=== PATIENT | female | born 1960 | race Caucasian/White ===

== ENCOUNTER 2017-10-29 09:12 | Outpatient (CLI) | payer MEDICARE, MEDICAID | END 2017-10-29 09:13 | disposition home or self-care (01) | LOC: BICMAMMO 09:12 | PROVIDERS: ATTEND Family Medicine | DX: Z12.31 Encounter for screening mammogram for malignant neoplasm of breast (principal) | CPT/HCPCS: 77063; 77067 ==

== ENCOUNTER 2018-04-20 03:41 | Emergency (ER) | payer MEDICARE, MEDICAID ==
[2018-04-20] MEDS ORDERED: HYDROcodone/Acetaminophen 5/325 mg Tablet ONE (06:56)
--- NOTE | 2018-04-20 08:25 | RAD ---
RADIOGRAPH RIGHT SHOULDER 3 VIEWS: Date: 04/20/18 Time: 0502 hours HISTORY: 58-year-old female with right shoulder traumatic pain after fall. FINDINGS: There is a fracture of the proximal humeral metaphysis, with mild displacement and mild comminution. It involves lateral aspect of humeral head. No dislocation. IMPRESSION: Acute, traumatic, comminuted, mildly displaced fracture of surgical neck (and a portion of the head) of right humerus. POS: [facility]
--- NOTE | 2018-04-20 08:31 | RAD ---
RIGHT ELBOW 2 VIEWS: Date: 04/20/18 HISTORY: Elbow pain. Fall with injury and pain. FINDINGS: No evidence of fracture seen on 2 view study. No evidence of joint effusion. IMPRESSION: No evidence of fracture identified. POS: [facility]
[2018-04-20] MEDS ORDERED: Ibuprofen 200 MG TAB ONE (08:40)
== END 2018-04-20 09:23 | disposition home or self-care (01) ==
LOC: ERS 03:41
DX: S42.211A Unspecified displaced fracture of surgical neck of right humerus, initial encounter for closed fracture (principal); K21.9 Gastro-esophageal reflux disease without esophagitis; E55.9 Vitamin D deficiency, unspecified; E03.9 Hypothyroidism, unspecified; E78.5 Hyperlipidemia, unspecified; F41.9 Anxiety disorder, unspecified; F32.9 Major depressive disorder, single episode, unspecified; F20.9 Schizophrenia, unspecified; Z79.899 Other long term (current) drug therapy; F17.210 Nicotine dependence, cigarettes, uncomplicated; W01.0XXA Fall on same level from slipping, tripping and stumbling without subsequent striking against object, initial encounter

== ENCOUNTER 2022-05-28 09:59 | Outpatient (CLI) | payer MEDICARE, MEDICAID | END 2022-05-28 10:00 | disposition home or self-care (01) | LOC: BICMAMMO 09:59 | PROVIDERS: ATTEND Family Medicine | DX: Z13.820 Encounter for screening for osteoporosis (principal); M81.0 Age-related osteoporosis without current pathological fracture | CPT/HCPCS: 77080 ==

== ENCOUNTER 2024-03-01 12:32 | Inpatient (IN) | payer MEDICARE, MEDICAID ==
[~2024-03-01 12:32] MED LIST: Iopamidol-370 76% 500 ML MDV (1 ML CHARGE) ONE
[2024-03-01] MEDS ORDERED: Magnesium 2 GM/50 ML BAG (IN WATER) ONE (13:13)
[2024-03-01] MEDS ORDERED: Albuterol 2.5 MG (0.5 mL) NEB ONE ×2 (13:30→15:12)
[2024-03-01] MEDS ORDERED: Ipratropium/Albuterol 3 ML NEB ONE ×2 (13:30→15:12)
[2024-03-01 13:52] LABS: #Basophils 0.04 10x3/uL (0.0-0.2); %Basophils 0.4 % (0.0-1.0); %Eosinophils 7.2 % (0.0-10.0); %Monocytes 5.3 % (0.0-10.0); %Neutrophils 71.9 % (42.0-75.0); Hematocrit 44.7 % (36.0-47.0); Mean Corpuscular HGB CONC 31.3 g/dL (32.0-36.0); Mean Corpuscular Hemoglobin 29.9 pg (27.0-31.0); Mean Corpuscular Volume 95.5 fL (78.0-98.0); Mean Platelet Volume 10.1 fL (7.4-10.4); Platelet Count 213 10x3/uL (130-400); Red Blood Cell (RBC) Count 4.68 mill/uL (4.20-5.40)
[2024-03-01 14:13] LABS: ALT (SGPT) 5 U/L (8-55); AST (SGOT) 13 U/L (5-34); Albumin 3.4 g/dL (3.4-4.8); Alkaline Phosphatase 74 U/L (40-110); Anion Gap 13 mmol/L (10-20); BUN (Urea Nitrogen) 9 mg/dL (9.8-20.1); Bilirubin, Total 0.6 mg/dL (0.2-1.2); Calc. Creatinine Clearance 0 mL/min (70-130); Carbon Dioxide 29 mmol/L (23-31); Chloride 102 mmol/L (98-107); Estimated GFR 91; Globulin 3.2 g/dL (2.4-3.5); Glucose 118 mg/dL (80-115); Potassium 4.6 mmol/L (3.5-5.1); Protein, Total 6.6 g/dL (5.8-8.1); Sodium 139 mmol/L (136-145)
[2024-03-01 14:25] LABS: Troponin I Less than 0.010 ng/mL (< 0.028)
[2024-03-01] MEDS ORDERED: Senokot S 8.6-50 MG TAB PO PRN (15:39)
[2024-03-01] MEDS ORDERED: HYDROcodone/Acetaminophen 5/325 mg Tablet PO PRN (15:39)
[2024-03-01] MEDS ORDERED: Ipratropium/Albuterol 3 ML NEB NEB PRN (15:55)
[2024-03-01 18:11] VITALS: BMI 30.4
[2024-03-01] MEDS: Ipratropium/Albuterol 3 ML NEB NEB SCH (18:18)
[2024-03-01] MEDS: methylPREDNISolone Sod Succ 40 MG VIAL IVP SCH (18:29)
[2024-03-01] MEDS: guaiFENesin ER 600 MG TAB PO SCH (20:53)
[2024-03-01] MEDS: Famotidine 20 MG TAB PO SCH (20:53)
[2024-03-01] MEDS: Acetaminophen 325 MG TAB PO PRN (20:54)
[2024-03-01] MEDS: Doxycycline 100 MG CAP PO SCH (20:54)
[2024-03-01] MEDS: Melatonin 3 MG TAB PO PRN (22:06)
[2024-03-02 06:00] LABS: #Basophils Less than 0.03 10x3/uL (0.0-0.2); #Eosinphils Less than 0.03 10x3/uL (0.0-0.7); %Basophils 0.1 % (0.0-1.0); %Lymphocytes 8.7 % (21.0-51.0); %Monocytes 1.6 % (0.0-10.0); %Neutrophils 89.1 % (42.0-75.0); Hematocrit 39.2 % (36.0-47.0); Hemoglobin 12.9 g/dL (12.0-16.0); Mean Corpuscular HGB CONC 32.9 g/dL (32.0-36.0); Mean Corpuscular Hemoglobin 30.3 pg (27.0-31.0); Mean Platelet Volume 10.3 fL (7.4-10.4); Platelet Count 227 10x3/uL (130-400); RBC Distribution Width 12.6 % (11.5-14.5); Red Blood Cell (RBC) Count 4.26 mill/uL (4.20-5.40)
[2024-03-02 07:02] LABS: Anion Gap 10 mmol/L (10-20); BUN (Urea Nitrogen) 10 mg/dL (9.8-20.1); Calc. Creatinine Clearance 96 mL/min (70-130); Calcium 9.7 mg/dL (7.8-10.44); Carbon Dioxide 31 mmol/L (23-31); Chloride 98 mmol/L (98-107); Estimated GFR 97; Glucose 151 mg/dL (80-115); Sodium 135 mmol/L (136-145)
[2024-03-02] MEDS: Enoxaparin 40 MG (0.4 mL) SYRINGE SC SCH (08:52)
[2024-03-02] MEDS: DULoxetine 30 MG CAP PO SCH (08:52)
[2024-03-02] MEDS: Levothyroxine Sodium 112 MCG TAB PO SCH (08:53)
[2024-03-02] MEDS: Losartan 25 MG TAB PO SCH (08:53)
[2024-03-02] MEDS: traZODone HCl 50 MG TAB PO SCH (08:53)
[2024-03-02] MEDS ORDERED: Non-Formulary Item 1 EACH (Losartan Potassium [Losartan Potassium] 100 MG Tablet) PO SCH (09:00)
[2024-03-02] MEDS: ALPRAZolam 0.5 MG TAB PO PRN (11:31)
[2024-03-02] MEDS: Mometasone 100 MCG/Formoterol 5 MCG 120 PUFF INHALER INH SCH (18:54)
[2024-03-02] MEDS ORDERED: Simvastatin 20 MG TAB PO SCH (21:00)
[2024-03-02] MEDS ORDERED: Non-Formulary Item 1 EACH (Benztropine Mesylate [Benztropine Mesylate] 2 MG Tablet) PO SCH (21:00)
[2024-03-02] MEDS: Benztropine 1 MG TAB PO SCH (21:34)
[2024-03-02] MEDS: Baclofen 10 MG TAB PO SCH (21:36)
[2024-03-02] MEDS: Atorvastatin Calcium 10 MG TAB PO SCH (21:36)
[2024-03-03 07:28] VITALS: BP 156/89; TEMP 98.6
[2024-03-03] MEDS: Ondansetron PF 4 MG/2 ML Vial IVP PRN (09:33)
== END 2024-03-03 11:32 | DRG 189 ==
LOC: ERS 12:32 → T4-B 15:29
PROVIDERS: ADMIT Family Medicine; ATTEND Internal Medicine
DX: J96.21 Acute and chronic respiratory failure with hypoxia (principal); K21.9 Gastro-esophageal reflux disease without esophagitis; E55.9 Vitamin D deficiency, unspecified; E53.9 Vitamin B deficiency, unspecified; E78.5 Hyperlipidemia, unspecified; E03.9 Hypothyroidism, unspecified; F41.9 Anxiety disorder, unspecified; F32.A Depression, unspecified; F17.210 Nicotine dependence, cigarettes, uncomplicated; F20.9 Schizophrenia, unspecified; J44.89 Other specified chronic obstructive pulmonary disease; Z79.890 Hormone replacement therapy; Z79.899 Other long term (current) drug therapy
CPT/HCPCS: 36415; 36416; 71045; 71275; 80048; 80053; 83880; 84484; 85025; 93005; 94640; 94664; 96365; J1650; J2405; J2920; J3475; J7611; J7620; Q9967

== ENCOUNTER 2024-03-06 10:55 | Inpatient (IN) | payer MEDICARE, MEDICAID ==
[2024-03-06] MEDS ORDERED: Ipratropium/Albuterol 3 ML NEB ONE (11:06)
[2024-03-06] MEDS ORDERED: Magnesium 2 GM/50 ML BAG (IN WATER) ONE (11:15)
[2024-03-06 11:40] LABS: Actual Bicarbonate (HCO3a) 31.2 mEq/L (22-28); Analyzer IN Cardio ER; Base Excess (BEa) 3.4 mEq/L (-2.0 to +3.0); Calcium, Ionized (arterial) 1.19 mmol/L (1.12-1.30); Carboxyhemoglobin (COHb) 1.1 gm% (0.0-3.0); Hematocrit-ABG 41 % (36.0-47.0); Hemoglobin (Hb) 13.9 g/dL (12.0-16.0); pH, Arterial 7.319 (7.35-7.45)
[2024-03-06 11:43] LABS: Actual Bicarbonate (HCO3v) 32.8 mEq/L (22-28); Analyzer IN Cardio ER; Base Excess 4.1 mEq/L (-2.0 to +3.0); Calcium, Ionized (venous) 1.13 mmol/L (1.16-1.32); Chloride (VBG) 96 mmol/L (98-106); Hematocrit-VBG 42 % (36.0-47.0); Hemoglobin (Hb) 14.3 g/dL (11.7-16.0); Potassium (VBG) 4.77 mmol/L (3.70-5.30); Sodium 135 mmol/L (133-146); pH (venous) 7.298 (7.32-7.43)
[2024-03-06 11:45] LABS: ALV-art Gradient 62.815 mmHg (0-20); CO2 Tension 62.1 mmHg (35.0-45.0); O2 Tension (PaO2), arterial 59.2 mmHg (> 80.0); Puncture Site Left Radial
[2024-03-06] MEDS ORDERED: Albuterol 2.5 MG (3 mL) NEB ONE (11:55)
[2024-03-06 12:01] LABS: #Basophils Less than 0.03 10x3/uL (0.0-0.2); %Basophils 0.2 % (0.0-1.0); %Lymphocytes 10.7 % (21.0-51.0); %Monocytes 5.1 % (0.0-10.0); %Neutrophils 81.3 % (42.0-75.0); Hemoglobin 14.3 g/dL (12.0-16.0); Mean Corpuscular HGB CONC 32.5 g/dL (32.0-36.0); Mean Corpuscular Hemoglobin 30.5 pg (27.0-31.0); Mean Corpuscular Volume 93.8 fL (78.0-98.0); Mean Platelet Volume 10.3 fL (7.4-10.4); Platelet Count 232 10x3/uL (130-400); RBC Distribution Width 13.1 % (11.5-14.5); Red Blood Cell (RBC) Count 4.69 mill/uL (4.20-5.40)
[2024-03-06 12:26] LABS: ALT (SGPT) 12 U/L (8-55); AST (SGOT) 10 U/L (5-34); Alkaline Phosphatase 58 U/L (40-110); Anion Gap 12 mmol/L (10-20); BUN (Urea Nitrogen) 10 mg/dL (9.8-20.1); Bilirubin, Total 0.4 mg/dL (0.2-1.2); Calc. Creatinine Clearance 0 mL/min (70-130); Calcium 8.6 mg/dL (7.8-10.44); Carbon Dioxide 30 mmol/L (23-31); Chloride 97 mmol/L (98-107); Estimated GFR 89; Globulin 2.7 g/dL (2.4-3.5); Glucose 181 mg/dL (80-115); Lipase 5 U/L (8-78); Magnesium 1.6 mg/dL (1.6-2.6); Potassium 4.4 mmol/L (3.5-5.1); Protein, Total 5.7 g/dL (5.8-8.1); Sodium 135 mmol/L (136-145)
[2024-03-06 12:29] LABS: Troponin I 0.051 ng/mL (< 0.028)
[2024-03-06] MEDS ORDERED: LevoFLOXacin 750 mg/D5W 150 ml Premix Bag ONE (12:31)
[2024-03-06 12:44] LABS: Actual Bicarbonate (HCO3a) 32.4 mEq/L (22-28); Analyzer IN Cardio ER; Base Excess (BEa) 3.8 mEq/L (-2.0 to +3.0); Calcium, Ionized (arterial) 1.18 mmol/L (1.12-1.30); Carboxyhemoglobin (COHb) 1.6 gm% (0.0-3.0); Hematocrit-ABG 40 % (36.0-47.0); Hemoglobin (Hb) 13.7 g/dL (12.0-16.0); O2 Tension (PaO2), arterial 64.5 mmHg (> 80.0); Potassium - ABG Lab 4.53 mmol/L (3.70-5.30); pH, Arterial 7.293 (7.35-7.45)
[2024-03-06 12:51] LABS: CO2 Tension 68.4 mmHg (35.0-45.0); Puncture Site Right Radial
[2024-03-06] MEDS ORDERED: Acetaminophen 650 MG Suppository PR PRN (13:36)
[2024-03-06 13:51] LABS: Actual Bicarbonate (HCO3a) 26.1 mEq/L (22-28); Analyzer IN Cardio ER; Base Excess (BEa) -2.5 mEq/L (-2.0 to +3.0); Calcium, Ionized (arterial) 1.19 mmol/L (1.12-1.30); Carboxyhemoglobin (COHb) 1.4 gm% (0.0-3.0); Hematocrit-ABG 40 % (36.0-47.0); Hemoglobin (Hb) 13.6 g/dL (12.0-16.0); Potassium - ABG Lab 4.49 mmol/L (3.70-5.30); pH, Arterial 7.238 (7.35-7.45)
[2024-03-06 13:54] LABS: CO2 Tension 62.6 mmHg (35.0-45.0); Puncture Site Left Radial
[2024-03-06] MEDS ORDERED: Ipratropium/Albuterol 3 ML NEB NEB PRN (13:55)
[2024-03-06] MEDS ORDERED: Bisacodyl 10 MG SUPP PR PRN (14:21)
[2024-03-06 15:28] VITALS: BMI 28.4
[2024-03-06] MEDS ORDERED: Sodium Chloride 0.9% 100 ML ONE (15:29)
[2024-03-06] MEDS ORDERED: cefTRIAXone (ROCEPHIN) 2 GM VIAL ONE (15:29)
[2024-03-06] MEDS: cefTRIAXone\\ROCEPHIN 2 GM in Sodium Chloride 0.9% 100 ML IVPB SCH (15:36)
[2024-03-06 15:57] LABS: Influenza A by NAA Not Detected (NotDetected); Influenza B by NAA Not Detected (NotDetected); SARS-CoV-2 NAA Rapid Test Not Detected (NotDetected)
[2024-03-06] MEDS ORDERED: Azithromycin 500 MG VIAL ONE (16:08)
[2024-03-06] MEDS: Azithromycin 500 MG in Sodium Chloride 0.9% 250 ML 250 ML IVPB SCH (16:18)
[2024-03-06] MEDS ORDERED: methylPREDNISolone Sod Succ 40 MG VIAL IVP SCH (18:00)
[2024-03-06] MEDS: Ipratropium/Albuterol 3 ML NEB NEB SCH (19:19)
[2024-03-06] MEDS: Mometasone 100 MCG/Formoterol 5 MCG 120 PUFF INHALER INH SCH (19:20)
[2024-03-06] MEDS: Famotidine 20 MG TAB PO SCH (20:04)
[2024-03-06] MEDS: Benztropine 1 MG TAB PO SCH (20:04)
[2024-03-06] MEDS: Atorvastatin Calcium 10 MG TAB PO SCH (20:04)
[2024-03-06] MEDS: Baclofen 10 MG TAB PO SCH (20:04)
[2024-03-06 20:26] LABS: Magnesium 2.3 mg/dL (1.6-2.6); Phosphorus 2.4 mg/dL (2.3-4.7)
[2024-03-06 20:31] LABS: Troponin I 0.042 ng/mL (< 0.028)
[2024-03-06] MEDS: Acetaminophen/Codeine 30-300mg Tablet PO PRN (21:46)
[2024-03-06 22:18] LABS: Troponin I 0.034 ng/mL (< 0.028)
[2024-03-07] MEDS: methylPREDNISolone Sod Succ 40 MG VIAL IVP SCH (00:18)
[2024-03-07 04:26] LABS: #Basophils Less than 0.03 10x3/uL (0.0-0.2); #Eosinphils Less than 0.03 10x3/uL (0.0-0.7); %Basophils 0.1 % (0.0-1.0); %Eosinophils 0.2 % (0.0-10.0); %Lymphocytes 10.9 % (21.0-51.0); %Monocytes 5.2 % (0.0-10.0); %Neutrophils 82.7 % (42.0-75.0); Hematocrit 42.2 % (36.0-47.0); Hemoglobin 12.8 g/dL (12.0-16.0); Mean Corpuscular HGB CONC 30.3 g/dL (32.0-36.0); Mean Corpuscular Volume 99.1 fL (78.0-98.0); Mean Platelet Volume 10.1 fL (7.4-10.4); Platelet Count 191 10x3/uL (130-400); RBC Distribution Width 13.1 % (11.5-14.5); Red Blood Cell (RBC) Count 4.26 mill/uL (4.20-5.40)
[2024-03-07 04:40] LABS: Anion Gap 16 mmol/L (10-20); BUN (Urea Nitrogen) 9 mg/dL (9.8-20.1); Calc. Creatinine Clearance 92 mL/min (70-130); Calcium 8.2 mg/dL (7.8-10.44); Carbon Dioxide 21 mmol/L (23-31); Chloride 104 mmol/L (98-107); Estimated GFR 94; Glucose 104 mg/dL (80-115); Potassium 5.1 mmol/L (3.5-5.1); Sodium 136 mmol/L (136-145)
[2024-03-07] MEDS: Levothyroxine Sodium 112 MCG TAB PO SCH (05:35)
[2024-03-07] MEDS: DULoxetine 30 MG CAP PO SCH (07:59)
[2024-03-07] MEDS: Docusate 100 MG CAP PO SCH (08:00)
[2024-03-07] MEDS: traZODone HCl 50 MG TAB PO SCH (08:00)
[2024-03-07] MEDS: Losartan 25 MG TAB PO SCH (08:00)
[2024-03-07] MEDS: Acetaminophen 325 MG TAB PO PRN (12:57)
[2024-03-08] MEDS: methylPREDNISolone Sod Succ 40 MG VIAL IVP SCH (09:37)
[2024-03-08] MEDS: Lidocaine 4% Patch TD SCH (09:37)
[2024-03-08] MEDS: Transdermal Patch Removal TOP SCH (21:21)
[2024-03-09 06:55] LABS: Anion Gap 11 mmol/L (10-20); BUN (Urea Nitrogen) 12 mg/dL (9.8-20.1); Calc. Creatinine Clearance 97 mL/min (70-130); Calcium 8.8 mg/dL (7.8-10.44); Carbon Dioxide 29 mmol/L (23-31); Chloride 100 mmol/L (98-107); Estimated GFR 95; Glucose 133 mg/dL (80-115); Potassium 4.2 mmol/L (3.5-5.1); Sodium 136 mmol/L (136-145)
[2024-03-09] MEDS: methylPREDNISolone Sod Succ 40 MG VIAL IVP SCH (08:47)
[2024-03-09 10:49] LABS: #Basophils Less than 0.03 10x3/uL (0.0-0.2); #Eosinphils Less than 0.03 10x3/uL (0.0-0.7); %Basophils 0.1 % (0.0-1.0); %Lymphocytes 8.3 % (21.0-51.0); %Monocytes 7.1 % (0.0-10.0); %Neutrophils 83.9 % (42.0-75.0); Hematocrit 44.9 % (36.0-47.0); Hemoglobin 14.3 g/dL (12.0-16.0); Mean Corpuscular HGB CONC 31.8 g/dL (32.0-36.0); Mean Corpuscular Hemoglobin 29.5 pg (27.0-31.0); Mean Corpuscular Volume 92.6 fL (78.0-98.0); Mean Platelet Volume 9.9 fL (7.4-10.4); Platelet Count 278 10x3/uL (130-400); RBC Distribution Width 13.6 % (11.5-14.5); Red Blood Cell (RBC) Count 4.85 mill/uL (4.20-5.40)
[2024-03-09 11:08] LABS: ALT (SGPT) 9 U/L (8-55); AST (SGOT) 12 U/L (5-34); Albumin 2.8 g/dL (3.4-4.8); Alkaline Phosphatase 46 U/L (40-110); Anion Gap 13 mmol/L (10-20); BUN (Urea Nitrogen) 12 mg/dL (9.8-20.1); Bilirubin, Total 0.3 mg/dL (0.2-1.2); Calc. Creatinine Clearance 92 mL/min (70-130); Carbon Dioxide 29 mmol/L (23-31); Chloride 99 mmol/L (98-107); Estimated GFR 89; Globulin 2.7 g/dL (2.4-3.5); Glucose 122 mg/dL (80-115); Potassium 4.6 mmol/L (3.5-5.1); Protein, Total 5.5 g/dL (5.8-8.1); Sodium 136 mmol/L (136-145)
[2024-03-09] MEDS: Nicotine 7 MG PATCH TD SCH (19:42)
[2024-03-10 06:58] LABS: ALT (SGPT) 11 U/L (8-55); AST (SGOT) 8 U/L (5-34); Albumin 2.7 g/dL (3.4-4.8); Alkaline Phosphatase 44 U/L (40-110); Anion Gap 10 mmol/L (10-20); BUN (Urea Nitrogen) 10 mg/dL (9.8-20.1); Bilirubin, Total 0.3 mg/dL (0.2-1.2); Calc. Creatinine Clearance 104 mL/min (70-130); Calcium 8.7 mg/dL (7.8-10.44); Carbon Dioxide 29 mmol/L (23-31); Chloride 98 mmol/L (98-107); Estimated GFR 99; Globulin 2.3 g/dL (2.4-3.5); Glucose 90 mg/dL (80-115); Sodium 133 mmol/L (136-145)
[2024-03-10 07:28] LABS: #Basophils Less than 0.03 10x3/uL (0.0-0.2); %Basophils 0.1 % (0.0-1.0); %Eosinophils 0.6 % (0.0-10.0); %Lymphocytes 23.3 % (21.0-51.0); %Monocytes 10.5 % (0.0-10.0); %Neutrophils 64.9 % (42.0-75.0); Hematocrit 41.3 % (36.0-47.0); Hemoglobin 13.5 g/dL (12.0-16.0); Mean Corpuscular HGB CONC 32.7 g/dL (32.0-36.0); Mean Corpuscular Hemoglobin 30.7 pg (27.0-31.0); Mean Corpuscular Volume 93.9 fL (78.0-98.0); Mean Platelet Volume 9.9 fL (7.4-10.4); Platelet Count 283 10x3/uL (130-400); RBC Distribution Width 13.6 % (11.5-14.5)
[2024-03-10] MEDS: predniSONE 20 MG TAB PO SCH (08:21)
[2024-03-11 15:45] VITALS: BP 154/96; TEMP 98.1
== END 2024-03-11 15:44 | DRG 871 ==
LOC: ERS 10:55 → SUATTDRO 10:55 → ERHOLD 13:42 → IMCU/EMU 18:46 → T4-B 03-09 21:53
PROVIDERS: ADMIT Internal Medicine; ATTEND Internal Medicine
DX: A41.9 Sepsis, unspecified organism (principal); I21.A1 Myocardial infarction type 2; J96.01 Acute respiratory failure with hypoxia; J18.9 Pneumonia, unspecified organism; J44.1 Chronic obstructive pulmonary disease with (acute) exacerbation; K21.9 Gastro-esophageal reflux disease without esophagitis; E03.9 Hypothyroidism, unspecified; E78.5 Hyperlipidemia, unspecified; F41.9 Anxiety disorder, unspecified; F32.A Depression, unspecified; F17.210 Nicotine dependence, cigarettes, uncomplicated; M54.50 Low back pain, unspecified; R33.9 Retention of urine, unspecified; Z79.899 Other long term (current) drug therapy
CPT/HCPCS: 36415; 36416; 71045; 80048; 80053; 82805; 83605; 83690; 83735; 83880; 84100; 84484; 85025; 87040; 93005; 93306; 94640; 94660; 96361; 96365; 96366; J0456; J0696; J1956; J2920; J3475; J3490; J7050; J7512; J7611; J7620

== ENCOUNTER 2025-07-30 17:30 | Emergency (ER) | payer MEDICARE, MEDICAID ==
[2025-07-30 18:14] LABS: #Basophils 0.05 10x3/uL (0.0-0.2); #Eosinophils 0.57 10x3/uL (0.0-0.7); #Monocytes 0.46 10x3/uL (0.11-0.59); #Neutrophils 7.14 10x3/uL (1.40-6.50); %Basophils 0.5 % (0.0-1.0); %Eosinophils 6.1 % (0.0-10.0); %Lymphocytes 11.9 % (21.0-51.0); %Monocytes 4.9 % (0.0-10.0); %Neutrophils 76.3 % (42.0-75.0); Hematocrit 41.0 % (36.0-47.0); Hemoglobin 12.9 g/dL (12.0-16.0); Mean Corpuscular Hemoglobin 28.4 pg (27.0-31.0); Mean Corpuscular Volume 90.1 fL (78.0-98.0); Platelet Count 237 10x3/uL (130-400); Red Blood Cell (RBC) Count 4.55 mill/uL (4.20-5.40); White Blood Cell (WBC) Count 9.36 10x3/uL (4.8-10.8)
[2025-07-30 18:28] LABS: Actual Bicarbonate (HCO3v) 34.6 mEq/L (22-28); Base Excess 5.8 mEq/L (-2.0 to +3.0); Calcium, Ionized (venous) 1.21 mmol/L (1.16-1.32); Chloride (VBG) 94 mmol/L (98-106); Hematocrit-VBG 43 % (36.0-47.0); Hemoglobin (Hb) 14.5 g/dL (11.7-16.1); Potassium (VBG) 4.11 mmol/L (3.70-5.30); Sodium 138 mmol/L (133-146)
[2025-07-30 18:37] LABS: ALT (SGPT) 7 U/L (Less than 34); AST (SGOT) 21 U/L (11-34); Albumin 3.7 g/dL (3.1-4.5); Alkaline Phosphatase 88 U/L (40-110); Anion Gap 14 mmol/L (10-20); BUN (Urea Nitrogen) 7 mg/dL (9.8-20.1); Bilirubin, Total 0.5 mg/dL (0.3-1.2); Calc. Creatinine Clearance 0 mL/min (70-130); Calcium 9.7 mg/dL (7.8-10.44); Carbon Dioxide 34 mmol/L (23-31); Chloride 96 mmol/L (98-107); Globulin 3.1 g/dL (2.4-3.5); Glucose 111 mg/dL (80-115); Potassium 4.8 mmol/L (3.5-5.1); Sodium 139 mmol/L (136-145)
[2025-07-30 21:43] LABS: Actual Bicarbonate (HCO3v) 35.0 mEq/L (22-28); Base Excess 7.2 mEq/L (-2.0 to +3.0); Calcium, Ionized (venous) 1.16 mmol/L (1.16-1.32); Chloride (VBG) 95 mmol/L (98-106); Hematocrit-VBG 40 % (36.0-47.0); Hemoglobin (Hb) 13.7 g/dL (11.7-16.1); Potassium (VBG) 4.10 mmol/L (3.70-5.30); Sodium 137 mmol/L (133-146)
== END 2025-07-31 00:40 ==
LOC: ERS 17:30
DX: J44.1 Chronic obstructive pulmonary disease with (acute) exacerbation (principal); K21.9 Gastro-esophageal reflux disease without esophagitis; E03.9 Hypothyroidism, unspecified; E78.5 Hyperlipidemia, unspecified; I25.2 Old myocardial infarction; F17.210 Nicotine dependence, cigarettes, uncomplicated; Z79.51 Long term (current) use of inhaled steroids; Z79.890 Hormone replacement therapy; Z79.899 Other long term (current) drug therapy
CPT/HCPCS: 70450; 71045; 71275; 80053; 82805; 83880; 84484; 85025; 87428; 93005; 94760; J2919; 96374; Q9967

== ENCOUNTER 2025-08-27 21:27 | Inpatient (IN) | payer MEDICARE, MEDICAID ==
[2025-08-27 22:07] LABS: #Basophils 0.03 10x3/uL (0.0-0.2); #Eosinophils 0.56 10x3/uL (0.0-0.7); #Monocytes 1.15 10x3/uL (0.11-0.59); #Neutrophils 6.60 10x3/uL (1.40-6.50); %Basophils 0.3 % (0.0-1.0); %Eosinophils 5.6 % (0.0-10.0); %Lymphocytes 17.0 % (21.0-51.0); %Monocytes 11.4 % (0.0-10.0); %Neutrophils 65.4 % (42.0-75.0); Hematocrit 41.2 % (36.0-47.0); Hemoglobin 12.9 g/dL (12.0-16.0); Mean Corpuscular Hemoglobin 28.2 pg (27.0-31.0); Mean Corpuscular Volume 90.2 fL (78.0-98.0); Platelet Count 206 10x3/uL (130-400); Red Blood Cell (RBC) Count 4.57 mill/uL (4.20-5.40); White Blood Cell (WBC) Count 10.09 10x3/uL (4.8-10.8)
[2025-08-27 22:31] LABS: ALT (SGPT) 12 U/L (Less than 34); AST (SGOT) 23 U/L (11-34); Albumin 3.6 g/dL (3.1-4.5); Alkaline Phosphatase 80 U/L (40-110); Anion Gap 15 mmol/L (10-20); BUN (Urea Nitrogen) 11 mg/dL (9.8-20.1); Bilirubin, Total 0.6 mg/dL (0.3-1.2); Calc. Creatinine Clearance 0 mL/min (70-130); Calcium 9.7 mg/dL (7.8-10.44); Carbon Dioxide 29 mmol/L (23-31); Chloride 100 mmol/L (98-107); Globulin 3.3 g/dL (2.4-3.5); Glucose 115 mg/dL (80-115); Potassium 4.8 mmol/L (3.5-5.1); Sodium 139 mmol/L (136-145)
[2025-08-27] MEDS ORDERED: Azithromycin 500 MG VIAL ONE (23:31)
[2025-08-27 23:52] LABS: Actual Bicarbonate (HCO3v) 29.2 mEq/L (22-28); Base Excess 1.4 mEq/L (-2.0 to +3.0); Calcium, Ionized (venous) 0.92 mmol/L (1.16-1.32); Chloride (VBG) 102 mmol/L (98-106); Hematocrit-VBG 39 % (36.0-47.0); Hemoglobin (Hb) 13.2 g/dL (11.7-16.1); Potassium (VBG) 3.63 mmol/L (3.70-5.30); Sodium 142 mmol/L (133-146)
[2025-08-28 00:55] LABS: Actual Bicarbonate (HCO3v) 30.8 mEq/L (22-28); Analyzer IN Cardio ER; Base Excess 3.5 mEq/L (-2.0 to +3.0); Calcium, Ionized (venous) 1.19 mmol/L (1.16-1.32); Chloride (VBG) 101 mmol/L (98-106); Hematocrit-VBG 41 % (36.0-47.0); Hemoglobin (Hb) 13.9 g/dL (11.7-16.1); Potassium (VBG) 4.32 mmol/L (3.70-5.30); Sodium 140 mmol/L (133-146)
[2025-08-28] MEDS ORDERED: Albuterol 2.5 MG (3 mL) NEB NEB PRN (01:12)
[2025-08-28] MEDS ORDERED: Ondansetron PF 4 MG/2 ML Vial IVP PRN (01:13)
[2025-08-28] MEDS ORDERED: Calcium Carbonate 500 MG ChewTAB PO PRN (01:13)
[2025-08-28 01:26] LABS: Bacteria/HPF 3+ HPF (None Seen); CAUTI Indications for Culture Alt mental st,lethar; Glucose, Urine (Dipstick) Normal (Negative); Leukocyte Negative Leu/uL (Negative); Protein, Urine (Dipstick) Negative (Neg-Trace); RBC/HPF 0-3 HPF (0-3); Specific Gravity, Urine 1.014 (1.002-1.036); WBC/HPF None Seen HPF (0-3)
[2025-08-28 01:27] LABS: Urine Culture Reflex No No
[2025-08-28 04:01] VITALS: BMI 31.0
[2025-08-28 05:44] LABS: #Basophils Less than 0.03 10x3/uL (0.0-0.2); #Eosinophils Less than 0.03 10x3/uL (0.0-0.7); #Monocytes 0.08 10x3/uL (0.11-0.59); #Neutrophils 5.12 10x3/uL (1.40-6.50); %Basophils 0.0 % (0.0-1.0); %Eosinophils 0.2 % (0.0-10.0); %Lymphocytes 8.7 % (21.0-51.0); %Monocytes 1.4 % (0.0-10.0); %Neutrophils 89.2 % (42.0-75.0); Hematocrit 36.6 % (36.0-47.0); Hemoglobin 11.6 g/dL (12.0-16.0); Mean Corpuscular Hemoglobin 28.8 pg (27.0-31.0); Mean Corpuscular Volume 90.8 fL (78.0-98.0); Platelet Count 185 10x3/uL (130-400); Red Blood Cell (RBC) Count 4.03 mill/uL (4.20-5.40); White Blood Cell (WBC) Count 5.74 10x3/uL (4.8-10.8)
[2025-08-28 05:55] LABS: Anion Gap 8 mmol/L (10-20); BUN (Urea Nitrogen) 13 mg/dL (9.8-20.1); Calc. Creatinine Clearance 106 mL/min (70-130); Calcium 8.9 mg/dL (7.8-10.44); Carbon Dioxide 31 mmol/L (23-31); Chloride 105 mmol/L (98-107); Glucose 173 mg/dL (80-115); Potassium 4.4 mmol/L (3.5-5.1); Sodium 140 mmol/L (136-145)
[2025-08-28] MEDS: DULoxetine 30 MG CAP PO SCH (08:40)
[2025-08-28] MEDS: Losartan 25 MG TAB PO SCH (08:40)
[2025-08-28] MEDS: Enoxaparin 40 MG (0.4 mL) SYRINGE SC SCH (08:40)
[2025-08-28] MEDS: Benztropine 1 MG TAB PO SCH (20:30)
[2025-08-28] MEDS: Mupirocin 1 GM TUBE TP SCH (20:30)
[2025-08-28] MEDS: Transdermal Patch Removal TOP SCH (20:33)
[2025-08-28] MEDS: Azithromycin 500 MG in Sodium Chloride 0.9% 250 ML 250 ML IVPB SCH (22:46)
[2025-08-29] MEDS: Acetaminophen/Codeine 30-300mg Tablet PO PRN (01:29)
[2025-08-29] MEDS: PNEUMOC 20-VAL CONJ-DIP CRM/PF 0.5 ML SYRINGE IM ONE (10:32)
[2025-08-30] MEDS: predniSONE 20 MG TAB PO SCH (07:59)
[2025-08-30] MEDS: Carvedilol 6.25 MG TAB PO SCH (20:29)
[2025-08-30] MEDS: Baclofen 10 MG TAB PO SCH (20:29)
[2025-08-30] MEDS: ALPRAZolam 0.5 MG TAB PO PRN (21:39)
[2025-08-31] MEDS: Acetaminophen 325 MG TAB PO PRN (20:30)
[2025-08-31] MEDS: Carvedilol 6.25 MG TAB PO SCH (20:30)
[2025-09-01 06:39] LABS: #Basophils Less than 0.03 10x3/uL (0.0-0.2); %Basophils 0.2 % (0.0-1.0); Mean Corpuscular Volume 89.0 fL (78.0-98.0)
[2025-09-01 06:48] LABS: Anion Gap 11 mmol/L (10-20); BUN (Urea Nitrogen) 17 mg/dL (9.8-20.1); Calc. Creatinine Clearance 89 mL/min (70-130); Calcium 9.0 mg/dL (7.8-10.44); Carbon Dioxide 31 mmol/L (23-31); Chloride 98 mmol/L (98-107); Glucose 97 mg/dL (80-115); Potassium 4.0 mmol/L (3.5-5.1); Sodium 136 mmol/L (136-145)
[2025-09-01 06:56] LABS: #Eosinophils 0.76 10x3/uL (0.0-0.7); #Monocytes 0.97 10x3/uL (0.11-0.59); #Neutrophils 5.88 10x3/uL (1.40-6.50); %Eosinophils 7.6 % (0.0-10.0); %Lymphocytes 22.9 % (21.0-51.0); %Monocytes 9.7 % (0.0-10.0); %Neutrophils 58.8 % (42.0-75.0); Hematocrit 42.1 % (36.0-47.0); Hemoglobin 13.4 g/dL (12.0-16.0); Mean Corpuscular Hemoglobin 28.3 pg (27.0-31.0); Platelet Count 231 10x3/uL (130-400); Red Blood Cell (RBC) Count 4.73 mill/uL (4.20-5.40); White Blood Cell (WBC) Count 10.00 10x3/uL (4.8-10.8)
[2025-09-01] MEDS: Guaifenesin DM 100-10/5 ML UDCUP PO PRN (20:02)
[2025-09-04 08:36] VITALS: TEMP 97.6
[2025-09-04 09:59] VITALS: BP 96/62
== END 2025-09-04 13:15 | DRG 189 ==
LOC: ERS 21:27 → INTOOBSV 08-28 02:19 → IMCU/EMU 08-28 02:19 → OBSVTOIN 08-28 10:00 → T4-A 08-29 10:56
PROVIDERS: ADMIT Internal Medicine; ATTEND Internal Medicine
PROC: 5A09357 Assistance with Respiratory Ventilation, Less than 24 Consecutive Hours, Continuous Positive Airway Pressure (ICD-10-PCS; principal; 2025-08-28)
DX: J96.21 Acute and chronic respiratory failure with hypoxia (principal); G93.41 Metabolic encephalopathy; F03.93 Unspecified dementia, unspecified severity, with mood disturbance; J44.1 Chronic obstructive pulmonary disease with (acute) exacerbation; F05 Delirium due to known physiological condition; F03.94 Unspecified dementia, unspecified severity, with anxiety; M84.650A Pathological fracture in other disease, pelvis, initial encounter for fracture; K21.9 Gastro-esophageal reflux disease without esophagitis; E55.9 Vitamin D deficiency, unspecified; E53.8 Deficiency of other specified B group vitamins; E03.9 Hypothyroidism, unspecified; M54.50 Low back pain, unspecified; E78.5 Hyperlipidemia, unspecified; J44.9 Chronic obstructive pulmonary disease, unspecified; H52.13 Myopia, bilateral; F41.9 Anxiety disorder, unspecified; F32.A Depression, unspecified; F20.9 Schizophrenia, unspecified; F17.210 Nicotine dependence, cigarettes, uncomplicated; R29.6 Repeated falls; M85.88 Other specified disorders of bone density and structure, other site; I25.2 Old myocardial infarction; Z98.890 Other specified postprocedural states; Z90.49 Acquired absence of other specified parts of digestive tract; Z88.0 Allergy status to penicillin; Z79.899 Other long term (current) drug therapy; Z79.890 Hormone replacement therapy; Z79.51 Long term (current) use of inhaled steroids; Z99.81 Dependence on supplemental oxygen; Z91.81 History of falling
CPT/HCPCS: 36415; 70450; 71045; 72125; 72170; 72192; 80048; 80053; 81001; 82805; 83880; 84484; 85025; 93005; 94640; 94660; 94760; 96360; 96361; 96365; 96366; 96372; 96375; 96376; G0378; J0456; J1650; J2919; J7050; J7512